=== PATIENT | female | born 1990 | race American Indian/Alaskan Native ===

== ENCOUNTER 2018-07-23 21:02 | Emergency (ER) | payer MEDICAID, OTHER ==
[2018-07-23] MEDS ORDERED: NACL 0.9% 1000 ML 1,000 ML IV ONE ×2 (21:20→22:36)
[2018-07-23] MEDS ORDERED: ZOFRAN IV ONE ×2 (21:20→21:49)
--- NOTE | 2018-07-23 21:20 | Emergency Department Report ---
Blank Doc - Documentation Documentation: 28 y o Female s/p liposuction surgery 10 days ago, states daughter was sick rec ently pt cc of productive coughing, n/v, malaise,stuffy nose labs. IVF
[2018-07-23 21:43] LABS: Basophils % (Auto) 0.3 % (0.0-1.8); Eosinophils # (Auto) 0.2 K/mm3 (0.0-0.4); Eosinophils % (Auto) 1.3 % (0.0-4.3); Hematocrit 37.5 % (30.3-42.9); Hemoglobin 12.3 gm/dl (10.1-14.3); Lymphocytes # (Auto) 1.5 K/mm3 (1.2-5.4); Lymphocytes % (Auto) 11.8 % (13.4-35.0); Mean Corpuscular HGB Conc 33 % (30-34); Mean Corpuscular Volume 86 fl (79-97); Monocytes # (Auto) 0.9 K/mm3 (0.0-0.8); Monocytes % (Auto) 7.2 % (0.0-7.3); Platelet Count 357 K/mm3 (140-440); Red Blood Count 4.36 M/mm3 (3.65-5.03); Red Cell Distribution Width 13.2 % (13.2-15.2)
[2018-07-23] MEDS ORDERED: ATROVENT IH ONE (21:49)
[2018-07-23] MEDS ORDERED: SUBLIMAZE IV ONE (21:49)
[2018-07-23] MEDS ORDERED: XOPENEX IH ONE (21:49)
[2018-07-23 21:52] LABS: BUN/Creatinine Ratio 10; Blood Urea Nitrogen 9 mg/dL (7-17); Calcium 9.6 mg/dL (8.4-10.2); Hemolysis Index 17
[2018-07-23] MEDS ORDERED: TESSALON PERLES PO ONE (21:52)
--- NOTE | 2018-07-23 21:57 | Emergency Department Report ---
HPI - General Chief Complaint: Nausea/Vomiting/Diarrhea Time Seen by Provider: 07/23/18 21:15 - HPI HPI: Room 2 The patient is a 28-year-old female presenting with chief complaint of shortness of breath and cough. The patient states she status post liposuction from abdomen with that transferred from buttocks 9 days ago in [place] by Dr. Lang. The patient states the past 3 days she's had shortness of breath, congestion and cough productive of green/yellow sputum. The patient admits to chills and rhinorrhea for the past 2 days. Today the patient states she's had intractable nausea and vomiting in addition to a decreased appetite. Patient states she has not tolerated po for 1 day and feels dehydrated. Patient complains of body aches. Patient states her daughter is sick with symptoms which include a cough rhinorrhea and fever. The patient gives her pain a score of 9/10 Location: [See above] Duration: 3 days Quality: Aching Severity: 9/10 Modifying factors: [see above] Context: [see above] Mode of transportation: [not driving] ED Past Medical Hx - Past Medical History Hx Asthma: Yes - Surgical History Past Surgical History?: No Additional Surgical History: Breast augmentation, liposuction from abdomen with fat transfer to buttocks - Family History Family history: no significant - Social History Smoking Status: Current Some Day Smoker (occasional) Substance Use Type: Marijuana - Medications Home Medications: Home Medications Medication Instructions Recorded Confirmed Last Taken Type ALBUTEROL Inhaler (OR & NICU) 2 puff IH QID PRN #1 inhalation 07/23/18 Unknown Rx [Proair] Azithromycin [Zithromax Z-GEORGES] 0 mg PO DAILY #6 tab 07/23/18 Unknown Rx Promethazine [Phenergan TAB] 25 mg PO Q6HR PRN #20 tab 07/23/18 Unknown Rx Promethazine [Phenergan] 25 mg MI Q6HR PRN #5 supp.rect 07/23/18 Unknown Rx oxyCODONE /ACETAMINOPHEN [Percocet 1 - 2 tab PO Q6HR PRN #10 tablet 07/23/18 Unknown Rx 5/325] ED Review of Systems ROS: Stated complaint: SOB VOMITTING PAIN Other details as noted in HPI Constitutional: chills Eyes: denies: eye pain ENT: congestion Respiratory: cough, shortness of breath Cardiovascular: denies: chest pain Endocrine: no symptoms reported Gastrointestinal: abdominal pain (postop soreness increasing with cough), nausea, vomiting Genitourinary: denies: dysuria Musculoskeletal: myalgia Neurological: denies: headache Physical Exam - Physical Exam Vital Signs: Vital Signs 07/23/18 21:16 Temperature 98 F Pulse Rate 128 H Respiratory 20 Rate Blood Pressure 111/73 O2 Sat by Pulse 99 Oximetry Physical Exam: GENERAL: The patient is well-developed well-nourished female lying on stretcher in the prone position exhibiting frequent coughing. [] HEENT: Normocephalic. Atraumatic. Extraocular motions are intact. Patient has moist mucous membranes. NECK: Supple. Trachea midline CHEST/LUNGS: Wheezing and rhonchi diffusely. Frequent coughing HEART/CARDIOVASCULAR: Regular. There is no tachycardia. There is no gallop rub or murmur. ABDOMEN: Abdomen is soft, nontender. Patient has normal bowel sounds. There is no abdominal distention. SKIN: Abdominal and buttocks surgical sites clean dry and intact. No evidence of infection. There is no diaphoresis. NEURO: The patient is awake, alert, and oriented. The patient is cooperative. The patient has no focal neurologic deficits. The patient has normal speech MUSCULOSKELETAL: There is no evidence of acute injury. ED Course Vital Signs 07/23/18 21:16 Temperature 98 F Pulse Rate 128 H Respiratory 20 Rate Blood Pressure 111/73 O2 Sat by Pulse 99 Oximetry - Reevaluation(s) Reevaluation #1: 07/23/18 23:27 Patient tolerating po ED Medical Decision Making - Lab Data Result diagrams: 07/23/18 21:26 07/23/18 21:26 - Differential Diagnosis postop atelectasis, pneumonia, bronchitis, influenza Critical care attestation.: If time is entered above; I have spent that time in minutes in the direct care of this critically ill patient, excluding procedure time. ED Disposition Clinical Impression: Acute bronchitis, Nausea & vomiting Disposition: DC-01 TO HOME OR SELFCARE Is pt being admited?: No Does the pt Need Aspirin: No Condition: Stable Instructions: Acute Bronchitis (ED) Additional Instructions: Return to the emergency department immediately should you develop worsening symptoms, fever, inability to tolerate food or liquid or any other concerns. Prescriptions: oxyCODONE /ACETAMINOPHEN [Percocet 5/325] 1 - 2 tab PO Q6HR PRN #10 tablet PRN Reason: Pain Promethazine [Phenergan] 25 mg MI Q6HR PRN #5 supp.rect PRN Reason: Vomiting Promethazine [Phenergan TAB] 25 mg PO Q6HR PRN #20 tab PRN Reason: Nausea ALBUTEROL Inhaler (OR & NICU) [Proair] 2 puff IH QID PRN #1 inhalation PRN Reason: Shortness Of Breath Azithromycin [Zithromax Z-GEORGES] 0 mg PO DAILY #6 tab Referrals: SHAWNA JUAN MD [Staff Physician] - 3-5 Days Time of Disposition: 23:27
[2018-07-23] MEDS ORDERED: PHENERGAN PO ONE (23:24)
--- NOTE | 2018-07-23 23:43 | XRay Report ---
PROCEDURE: XR CHEST ROUTINE 2V TECHNIQUE: 2 views of the chest. HISTORY: Productive cough COMPARISONS: None available FINDINGS: No lobar consolidation. Subtle opacities are present in the right cardiophrenic angle. No pleural eff usion or pneumothorax. The cardiac and mediastinal silhouettes are normal. The trachea is midline. No acute osseous abnormality. IMPRESSION: Subtle right cardiophrenic opacities suggestive of early infiltrate given clinical histor y. No lobar consolidation or pleural effusion. This document is electronically signed by Fly Rosales DO., July 23 2018 11:41:44 PM ET
[2018-07-24 02:37] VITALS: BP 112/70
== END 2018-07-24 01:30 | disposition home or self-care (01) ==
LOC: ED 21:02
DX: J40 Bronchitis, not specified as acute or chronic (principal); R11.2 Nausea with vomiting, unspecified; J45.909 Unspecified asthma, uncomplicated; F17.200 Nicotine dependence, unspecified, uncomplicated; F12.10 Cannabis abuse, uncomplicated
CPT/HCPCS: 36415; 71046; 80048; 84702; 85025; 87400; 94640; 96361; 96374; 96375; 99284; J2405; J3010; J7030; Q0169